=== PATIENT | female | born 1960 | race Caucasian/White ===

== ENCOUNTER → 2021-11-04 | Day surgery (SDC) | payer OTHER ==
[~2021-11-04] VITALS: Ht 157.5 cm; Wt 95.2 kg
[~2021-11-04] MED LIST: AMARYL2 MG PO; ASPIRIN CHEWABL81 MG PO; CALCIUM 500 +1 EAC1 PO; EFFEXOR XR150 MG PO; EFFEXOR XR37.5 MG PO; FISH OIL 1,2001 EAC2 PO; FLEXERIL10 MG PO; JANUVIA100 MG PO; K-DUR20 MEQ PO; KLOR-CON M20 T20 MEQ PO; KLOR-CON20 MEQ PO; LASIX40 MG PO; LEVOTHYROXINE75 MC1 PO; LIPITOR20 MG PO; NEURONTIN300 MG PO; OMEPRAZOLE40 MG PO; PANTOPRAZOLE SO40 MG PO; SUPER B-50 COM1 EACH PO; VICTOZA 2-0.6 MG/0.1 SC; VISTARIL25 MG PO; VITAMIN D2000 UNIT PO; VOLTAREN **OUT75 MG PO; ZESTORETIC 20-1 EAC1 PO
[2021-11-04 07:58] LABS: HCT 33.8 % (37.0-47.0); HGB 11.1 g/dl (12.5-16.0); MCHC 32.8 g/dL (32.0-36.0); MCV 88.3 fL (78.0-100.0); MPV 9.1 fL (6.0-9.5); RBC 3.83 M/uL (4.20-5.40); RDW 13.3 % (11.5-14.0); WBC 7.6 K/uL (4.0-10.5)
[2021-11-04 08:18] LABS: ALBUMIN 3.3 g/dL (3.4-5.0); BILIRUBIN - TOTAL 0.4 mg/dL (0.2-1.0); BUN/CREAT RATIO (CALC) 19.6 RATIO; CREATININE 1.12 mg/dL (0.51-0.95); GLOBULIN (CALCULATION) 3.6 g/dL; POTASSIUM 3.5 mmol/L (3.5-5.1); TOTAL PROTEIN 6.9 g/dL (6.4-8.2)
== END | disposition home or self-care (01) ==
LOC: FAS 07:19
PROVIDERS: Surgery
DX: K29.70 Gastritis, unspecified, without bleeding (principal); K29.80 Duodenitis without bleeding; K44.9 Diaphragmatic hernia without obstruction or gangrene; I10 Essential (primary) hypertension; E78.5 Hyperlipidemia, unspecified; E03.9 Hypothyroidism, unspecified; K21.9 Gastro-esophageal reflux disease without esophagitis; Z79.84 Long term (current) use of oral hypoglycemic drugs; Z79.899 Other long term (current) drug therapy
CPT/HCPCS: 36415; 80053; J7120